=== PATIENT | male | born 1960 | race Caucasian/White ===

== ENCOUNTER 2024-06-08 13:35 | Outpatient (OUT) | payer BC, SELFPAY ==
--- NOTE | 2024-06-08 14:00 | XR_ITS ---
The [address] [address] Patient Name: GALILEA VANEGAS MRN: [id number] date: 1960 Sex: M Assigned Patient Location: LAB Current Patient Location: Accession/Order Number: [id number] Exam Date: 06/08/2024 13:55 Report Date: 06/10/2024 05:42 At the request of: TAWANA MONTANEZ Procedure: XR abdomen 1V EXAMINATION: XR abdomen 1V HISTORY: KIDNEY STONES COMPARISON: XR KUB 11/19/2022 FINDINGS: KIDNEY/URETER - RIGHT: No visible renal or ureteral calcifications. KIDNEY/URETER - LEFT: No visible renal or ureteral calcifications. PELVIS: No visible ureteral stones. Stable pelvic calcifications favoring phleboliths. BOWEL: No abnormal dilation or deviation. BONES: No acute abnormality. OTHER: Negative. No abnormal gaseous collections. XR/XR abdomen 1V IMPRESSION: 1. No appreciable urinary tract calculi. Electronically authenticated by: KARINA SNIDER Date: 06/10/2024 05:42
[2024-06-08 15:23] LABS: Prostate Specific Antigen Dx 3.31 ng/mL (<=4.00)
== END 2024-06-08 13:36 | disposition home or self-care (01) ==
LOC: LAB 13:35
PROVIDERS: PCP Family Medicine; Visit Provider Urology
DX: N20.0 Calculus of kidney (principal); R97.20 Elevated prostate specific antigen [PSA]
CPT/HCPCS: 36415; 74018; 84153

== ENCOUNTER 2025-06-15 10:40 | Outpatient (OUT) | payer BC, SELFPAY ==
--- OUTSIDE RECORDS SUMMARY | 2025-06-15 10:50 | XMS_ITS | CCD ---
Author Organization [facility] CliniSyky Care Team Providers Care Skin Installer Name Role Phone TERRELL MARTIN Primary Care Physician Unavailable Primary Care Provider UnavailVEGA Flores Referring Unavailable PROVIDER, UNKNOWN Attending Unavailable PROVIDER, UNKNOWN Admitting Unavailable VEGA, VEGA Admitting Unavailable VEGA, VEGA Attending Unavailable VEGA, VEGA Consulting Unavailable INDY, DR WANG Primary Care Unavailable VEGA, VEGA Attending Unavailable VEGA, VEGA Consulting Unavailable INDY, DR WANG Primary Care Unavailable VEGA, VEGA Admitting Unavailable VEGA, VEGA Attending Unavailable VEGA, VEGA Consulting Unavailable INDY, DR WANG Primary Care Unavailable VEGA, VEGA Admitting Unavailable VEGA, VEGA Admitting Unavailable VEGA, VEGA Attending Unavailable MARTIN, DR WANG Primary Care Unavailable VEGA, VEGA Consulting Unavailable INDY, DR WANG Primary Care Unavailable VEGA, VEGA Admitting Unavailable VEGA, VEGA Attending Unavailable VEGA, VEGA Consulting Unavailable ZIEBER, DR KARINA Davidson Consulting Unavailable NATALIYA COVINGTON Admitting Unavailable NATALIYA COVINGTON Attending Unavailable INDY, DR WANG Primary Care Unavailable NATALIYA COVINGTON Consulting Unavailable VEGA, VEGA Admitting Unavailable VEGA, VEGA Attending Unavailable VEGA, VEGA Consulting Unavailable INDY, DR WANG Primary Care Unavailable BRIANNA WADE Admitting Unavailable BRIANNA WADE Attending Unavailable INDY, DR WANG Primary Care Unavailable BRIANNA WADE Consulting Unavailable Vega VEGA Attending Unavailable VEGA, Vega Davidson Attending Unavailable Medications Current Medications Medication Drug Class(es) Dates Sig (Normalized) Sig (Original) acetaminophen 325 mg / HYDROcodone bitartrate 7.5 mg oral tablet (2 sources) Opioid Agonist Start: 04-10-2023 take 1 tablet by mouth once, then take 1 tablet by mouth every hour Stow 325 mg-7.5 mg oral tablet 1 tab(s), Oral, Once, 1 tab(s), Refill(s) 0, Take 1 hour prior to procedure, [facility]/pharmacy #[id number], 180, cm, 12/10/22 10:01:00 EDT, Height/Length Dosing, 82, kg, 12/10/22 10:01:00 EDT, Weight Dosing Start Date: 04/10/23 Status: Ordered Start: 10-16-2022 take 1 tablet by deonte th once, then take 1 tablet by mouth every hour Stow 325 mg-7.5 mg oral tablet 1 tab(s), Oral, Once, 1 tab(s), Refill(s) 0, Take 1 hour prior to procedure, [facility]/pharmacy #[id number], 172, cm, 12/04/21 10:04:00 EDT, Height/Length Dosing, 80, kg, 12/04/21 10:04:00 EDT, Weight Dosing Start Date: 10/16/22 Status: Ordered 24 hr alfuzosin hydrochloride 10 mg extended release oral tablet (1 source) alpha-Adrenergic Herber Start: 06-15-2024 take 1 tablet by mouth once daily alfuzosin 10 mg ER Tab 10 mg = 1 tab(s), Oral, Daily, # 30 tab(s), Refills(s) 11, Pharmacy: [facility]/pharmacy #[id number], 180, cm, 06/15/24 13:47:00 EDT, Height/Length Dosing, 82, kg, 06/15/24 13:47:00 EDT, Weight Dosing Start Date: 06/15/24 Status: Ordered Chondroitin Sulfates / Glucosamine (7 sources) Start: 10-21-2020 Chondroitin-Glucosami ne Oral, Daily, Refill(s) 0 Start Date: 10/21/20 Status: Ordered glucosamine sulfate 500 mg oral tablet (1 source) Start: 11-11-2024 take 1 tablet by mouth once daily Glucosamine Sulfate (Glucosamine) 500 mg tablet Active 500 MG PO Daily November 11, 2024 12:00am administer with a meal hydroCHLOROthiazide 12.5 mg oral capsule (10 sources) Thiazide Diuretic Start: 02-05-2023 End: 01-24-2025 take 1 capsule by mouth once daily Hydrochlorothiazide 12.5 mg capsule Active 1 CAP PO Daily November 22, 2023 12:00am FreeTextSig: TAKE 1 CAPSULE BY MOUTH EVERY DAY Oral; Note: Source Status: Taking; Refills: 3; Qty: 90 Each; Provider: CORY SHARMA Start: 02-04-2022 take 1 capsule by [facility] once daily hydrochlorothiazide 12.5 mg Cap 12.5 mg = 1 cap(s), Oral, Daily, # 90 cap(s), Refills(s) 3, Pharmacy: [facility]/pharmacy #[id number], 172, cm, 12/04/21 10:04:00 EDT, Height/Length Dosing, 80, kg, 12/04/21 10:04:00 EDT, Weight Dosing Start Date: 02/04/22 Status: Ordered Multi Vitamin+ (4 sources) Start: 12-10-2022 Multi Vitamin+ Refill(s) 0 Start Date: 12/10/22 Status: Ordered Multivitamin With Iron (Daily Vitamin With Iron) tablet (1 source) Start: 11-11-2024 take 1 tablet by mouth once daily Multivitamin With Iron (Daily Vitamin With Iron) tablet Active 1 TAB PO Daily November 11, 2024 12:00am pantoprazole 40 mg delayed release oral tablet (14 sources) Proton Pump Inhibitor Start: 11-13-2023 End: 11-11-2024 take 1 tablet by mouth once daily Pantoprazole 40 mg tablet,delayed release (DR/EC) Active 40 MG PO Daily 90 90 November 11, 2024 1:29pm Start: 10-21-2020 pantoprazole D aily, Refills(s) 0 Start Date: 10/21/20 Status: Ordered Completed/Discontinued Medications Medication Drug Class(es) Dates Sig (Normalized) Sig (Original) fluconazole 150 mg oral tablet (1 source) Azole Antifungal Start: 12-12-2023 End: 11-11-2024 Fluconazole 150 mg tablet Discontinued 150 MG PO Daily 2 2 December 12, 2023 12:00am November 11, 2024 1:27pm Take 1 tablet by mouth today with food, take the second tablet in 3 days. Gadoterate Meglumine (DOTAREM) 10 MMOL/20ML solution (1 source) Start: 09-27-2022 End: 09-27-2022 Gadoterate Meglumine (DOTAREM) 10 MMOL/20ML solution terbinafine hydrochloride 10 mg/ml topical cream (1 source) Allylamine Antifungal Start: 12-12-2023 End: 11-11-2024 Terbinafine Hcl (Antifungal (Terbinafine)) 1 % cream Discontinued 1 APPLIC TOPICAL Twice daily December 12, 2023 12:00am November 11, 2024 1:27pm Apply to rash until the rash improves then apply for 2 more days. Problems Active Problems Problem Classification Problem Date Documented Date Episodic/Chronic Calculus of urinary tract (20 sources) Kidney stone; Translations: [Calculus of kidney] Onset: 06-11-2022 Episodic E Codes: Natural/environment (1 source) Exposure to other specified factors, initial encounter; Translations: [EXPOSURE OTHER SPEC FACTORS INITIAL] Onset: 09-11-2022 Episodic Esophageal disorders (6 sources) Gastroesophageal reflux disease; Translations: [Gastro-esophageal reflux disease without esophagitis] 11-22-2023 Chronic Hyperplasia of prostate (16 sources) Benign prostatic hypertrophy with outflow obstruction; Translations: [Benign prostatic hyperplasia with lower urinary tract symptoms] Onset: 06-11-2022 Chronic Mycoses (1 source) Tinea cruris; Translations: [Dermatophytosis of groin and perianal area] 12-12-2023 Episodic Nutritional deficiencies (1 source) Vitamin D deficiency, unspecified; Translations: [VITAMIN D DEFICIENCY UNSPECIFIED] Onset: 05-31-2022 Chronic Other aftercare (1 source) Other halfway (current) drug therapy; Translations: [OTH CORRECTION CURRENT DRUG THERAPY] Onset: 09-11-2022 Episodic Other eye disorders (3 sources) Other specified disorders of eye and adnexa; Translations: [OTHER SPEC DISORDERS EYE AND ADNEXA] Onset: 09-08-2022 Episodic Other male genital disorders (9 sources) Spermatocele; Translations: [Spermatocele of epididymis, unspecified] Onset: 06-11-2022 Episodic Other male genital disorders (1 source) Spermatocele of epididymis, unspecified; Translations: [SPERMATOCELE EPIDIDYMIS UNSPECIFIED] Onset: 11-30-2022 Episodic Other screening for suspected conditions (not mental disorders or infectious disease) (14 sources) Raised prostate specific antigen; Translations: [Elevated prostate specific antigen [PSA]] Onset: 05-31-2022 Episodic Superficial injury; contusion (1 source) Injury of conjunctiva and corneal abrasion without foreign body, right eye, initial encounter; Translations: [INJ CONJ AND CA W/O FB RT EYE INITIAL] Onset: 09-11-2022 Episodic Past or Other Problems Problem Classification Problem Date Documented Da te Episodic/Chronic Malaise and fatigue (1 source) Other fatigue; Translations: [OTHER FATIGUE] Onset: 05-31-2022 Episodic Results Test Name Value Interpretation Reference Range Facility Urology Office/Clinic Noteon 06-15-2024 Urology Office/Clinic Note Urology Office/Clinic Note Chief Complaint 1 yr w/ PSA & KUB HPI Staff 64 yr old male here for 1 yr f/u w/ PSA and KUB Dx: elevated PSA, hx of kidney stones, BPH with obstruction. S/p TRUS/bx done 10/30/22 pt was unable to give urine sample PSA: 11/22/21 - 1.87 05/29/22 - 3.11 11/27/22 - 3.78 06/08/24 - 3.31 MRI of prostate 09/27/22 - PI-RADS 3. TRUS/Bx 10/30/22 - DELTA x 1 core. TRUS/bx 05/14/23 - All neg. Prostate volume 38 cc. Dysuria: no Incomplete bladder emptying: no Hematuria: no Frequency: q2-4 hrs, depending on how much he drinks Urgency: no Nocturia:2-3x Stream: weak Leaking: at times Post void dripping: at times Wearing pads/ Depends: Urge incontinence:no Stress incontinence:no Incontinence without Sensory Awareness:no Abdominal pain:no Flank pain:no Sexual complaints: History of Present Illness Tests reviewed: reviewed PSA, KUB I have reviewed the previous health record information and history for this patient from Dr. Vega. I have reviewed and verified the staff HPI to be accurate for this encounter. Review of Systems PHQ Score Initial Depression Screen Score: 0 SCORE ROS - Provider Constitutional: denies weight loss, denies hot flashes. Eyes: denies eye problems. Gastrointestinal: denies nausea, denies vomiting. Cardiovascular: denies chest pain or angina. Integumentary: no dryness Musculoskeletal: denies musculoskeletal symptoms. ENMT: denies otolaryngeal symptoms. Respiratory: no shortness of breath. Heme/Lymph: denies easy bleeding tendency, denies easy bruising tendency. Psychiatric: no confusion, no anxiety. Genitourinary: See HPI. Physical Exam Vitals & Measurements HR: 68(Peripheral) BP: 136/82 HT: 71 in HT: 180 cm WT: 82 kg WT: 180.4 lb BMI: 25.31 General Appearance: alert, no distress, well nourished, well developed male. Assessment/Plan 1. Elevated PSA (R97.20: Elevated prostate specific antigen [PSA]) PSA: 11/22/21 - 1.87 05/29/22 - 3.11 11/27/22 - 3.78 06/08/24 - 3.31 MRI of prostate 09/27/22 - PI-RADS 3. TRUS/Bx 10/30/22 - DELTA x 1 core. TRUS/bx 05/14/23 - All neg. Prostate volume 38 cc. PSA decreased from prior. Discussed possible subclinical prostatitis contributing to previous elevation. Will continue to monitor. -PSA in 1 year 2. Kidney stone (N20.0: Calculus of kidney) 24hr urine 11/30/22 - U24 Na 252 slightly H. Volume slightly low. KUB 11/27/22 [facility] - No urinary tract calculi. KUB 06/08/24 [facility] - No stones noted. Taking HCTZ 12.5 mg qd. Reviewed imaging results. No indication for changes in management. -Cont HCTZ 12.5 mg qd and increased water intake 3. BPH with urinary obstruction (N40.1: Benign prostatic hyperplasia with lower urinary tract symptoms) Not taking any BPH meds. No sample provided for UA today. Reports slower stream. Feels he empties. Denies straining. Attributes getting up at night due to compensating for limited water intake during the day. Pt inquired about prostate supplements. Advised pt these are not FDA-approved and there are limited studies. Discussed prostate meds and possible SEs including orthostatic hypotension and retrograde ejaculation. Pt is willing to try this. -Start Alfuzosin ER 10mg qd. Rx sent to [facility]. Follow-up With When Contact Information LISSETH MARTINEZ, Vega Davidson, [facility] [address], [place] [address]- [phone] Additional Instructions: 1 yr w/ PSA Patient Education Benign Prostatic Hyperplasia I, Sally Huff, personally scribed for Dr. Vega on 06/15/2024 15:15:24. . Documentation recorded by the scribe, Sally Huff, accurately reflects the services(s) I performed and decisions made by me. Authenticated by Dr. Vega on 06/15/2024 15:17:44. Problem List/Past Medical History Ongoing BPH with urinary obstruction Elevated PSA History of kidney stones Kidney stone Spermatocele Historical No qualifying data Procedure/Surgical History Transrectal needle biopsy of prostate (05/14/2023), Transrectal biopsy of prostate using ultrasound (US) guidance (10/30/2022), ESWL of kidney (10/27/2020), Colonoscopy. Medications Chondroitin-Glucosam ine, Oral, Daily hydrochlorothiazide 12.5 mg Cap, 12.5 mg= 1 cap(s), Oral, Daily, 3 refills Multi Vitamin+ pantoprazole, Daily Allergies No Known Allergies Social History Tobacco Never (less than 100 in lifetime) Tobacco Use:. Never Smokeless Tobacco Use:., 06/15/2024 Family History Brain tumor: Father. Heart disease: Brother. Immunizations Vaccine Date Status influenza virus vaccine, inactivated 06/24/2022 Recorded SARS-CoV-2 (COVID-19) [id number] 06/24/2022 Recorded SARS-CoV-2 (COVID-19) mRNA BNT-162b2 vax 08/13/2021 Recorded SARS-CoV-2 (COVID-19) Ad26 vaccine 08/2021 Recorded influenza virus vaccine, inactivated 07/2021 Recorded influenza virus vaccine, inactivated 06/15/2021 Recorded (more content not included)... Normal [facility] Comment on above: Result Comment: Elec tronically Signed By: Vega VEGA MD\.br\Date and Time Signed: 06/15/24 15:17 EDT\.br\Electronically Co-Signed By: Sally Huff\.br\Date and Time Co-Signed: 06/15/24 15:15 EDT\.br\Electronically Co-Signed By: Sally Huff\.br\Date and Time Co-Signed: 06/15/24 15:16 EDT CITRATE URINE 24HRon 023 Citric Acid, U, 24hr 690 mg/24 hr Normal 320-1240 [facility] Comment on above: Result Comment: This test was developed and its performance characteristics determined by [facility]. It has not been cleared or approved by the Food and Drug Administration. Performed By: #### E LEC #### [facility] [address] [place] [address] Dr. Jumana White Citric Acid, Urine 321 mg/L Normal Undefined [facility] Comment on above: Performed By: #### E LEC #### [facility] [address] [place] [address] Dr. Jumana White OXALATE 24HR URINEon 023 Oxalates, Urine 12 mg/L Normal Undefined [facility] Comment on above: Performed By: #### O X24HR #### [facility] [address] [place] [address] Dr. Jumana White Oxalates, Urine 24hr 26 mg/24 hr Normal 7-44 [facility] Comment on above: Performed By: #### O X24HR #### [facility] [address] [place] [address] Dr. Jumana White MAGNESIUM 24HR URINEon 12-02 Magnesium 24hr Urine 144.1 mg/24 hr Normal 12.0-293.0 [facility] Comment on above: Performed By: #### M AG24 #### [facility] [address] [place] [address] Dr. Jumana White Magnesium UR 6.7 mg/dL Normal Not Estab. [facility] Comment on above: Performed By: #### M AG24 #### [facility] [address] [place] [address] Dr. Jumana White PHOSPHORUS 24HR URINEon Phosphorus, Urine 83.2 mg/dL Normal Not Estab. The [facility] Comment on above: Performed By: #### O X24HR #### [facility] [address] [place] [address] Dr. Jumana White Phosphorus, Urine 24hr 1789 mg/24 hr Critically high 390-1425 [facility] Comment on above: Performed By: #### O X24HR #### [facility] [address] [place] [address] Dr. Jumana White URIC ACID 24 HR URINEon 04-0 Uric Acid, Urine 41.2 mg/dL Normal Not Estab. The [facility] Comment on above: Performed By: #### U LANIE 24 #### [facility] [address] [place] [address] Dr. Jumana White Uric Acid, Urine 24hr 885.8 mg/24 hr Normal 182.4-936.8 [facility] Comment on above: Performed By: #### U LANIE 24 #### [facility] [address] [place] [address] Dr. Jumana White CALCIUM 24 HR URINEon 2022 CALC, 24 HR UR 223.6 mg/24 hr Normal 100.0-300.0 [facility] Comment on above: Performed By: #### O X24HR #### [facility] [address] [place] [address] Dr. Jumana White UR CALCIUM 10.4 mg/dL Normal 5.1-21.0 [facility] Comment on above: Performed By: #### O X24HR #### [facility] [address] [place] [address] Dr. Jumana White CREA 24 HR URINEon 3 CREA, 24 HR UR 1693.34 mg/24 hr Normal 1,000.00- 2,000 .00 [facility] Comment on above: Performed By: #### N A24U, [id number] #### [facility] [address] [place] [address] Dr. Jumana White URINE CREAT 78.76 mg/dL Normal 20.00-300.00 [facility] Comment on above: Performed By: #### N A24U, [id number] #### [facility] [address] [place] [address] Dr. Jumana White SODIUM 24 HR URINEon 023 NA, 24 HR UR 252 mmol/24 hr Critically high 40-220 [facility] Comment on above: Performed By: #### C REA24U, [id number] #### [facility] [address] [address] [address] Jumana White Sodium (U) [Moles/Vol] 117 mmol/L Critically high 30-90 [facility] Comment on above: Performed By: #### C REA24U, [id number] #### [facility] [address] [place] [address] Dr. Jumana White UR TOT VOL 2150 ml/24 HR Normal [facility] Comment on above: Performed By: #### C REA24U, [id number] #### [facility] [address] [place] [address] Dr. Jumana White Performed By: #### N A24U, [id number] #### [facility] [address] [place] [address] Dr. Jumana White Performed By: #### O X24HR #### [facility] [address] [place] [address] Dr. Jumana White XR KUB 1 VIEWon 11-27-2022 XR KUB 1 VIEW EXAMINATION: XR KUB 1 VIEW HISTORY: Lower urinary tract symptoms due to benign prostatic hypertrophy COMPARISON: XR KUB 06/01/2021 FINDINGS: KIDNEY/URETER - RIGHT: No visible renal or ureteral calcifications. KIDNEY/URETER - LEFT: No visible renal or ureteral calcifications. PELVIS: No appreciable ureteral stones. Numerous pelvic calcifications favoring phleboliths. BOWEL: No abnormal dilation or deviation. BONES: No acute abnormality. OTHER: Negative. No abnormal gaseous collections. IMPRESSION: 1. No appreciable urinary tract calculi. Electronically authenticated by: KARINA SNIDER Date: 2022-11-27 14:29 Normal [facility] MR PROSTATE W/W/Oon 10-08-19 MR PROSTATE W/W/O EXAMINATION: MR PROSTATE W/W/O 09/27/2022 01:23 PM CLINICAL HISTORY: PSA ASSOCIATED DIAGNOSIS: Elevated PSA ORDERING PROVIDER: VEGA VEGA TECHNOLOGISTS NOTE: COMPARISON: None TECHNIQUE: Patient questionnaire was completed and was reviewed by MRI personnel prior to the patient entering the scanner. Multiplanar, multisequence MR imaging of the prostate was performed with and without intravenous contrast. INTRA-PROCEDURE MEDS: Gadoterate Meglumine (DOTAREM) 10 MMOL/20ML solution 15 mL Route: Intravenous Push FINDINGS: The prostate measures 4.4 x 3.4 x 4.0 cm. The calculated prostate volume is 30.56 cc. No PSA was available in unavailable electronic medical records at the time of this interpretation. Hemorrhage: Absent. Peripheral zone: Lesion #1: Location: Right base medial on series 10, image 13, (Series 9, Image 13) (Series 8, Image 13) Size: 1 cm DWI: Focal hypointense on ADC or hyperintense on DWI. Category 3. DCE: Not applicable. Prostate margin: No involvement. Lesion overall PI-RADS category: 3 Lesion #2: Location: Left base medial on series 9, image 13. Size: 0.6 cm DWI: Focal hypointense on ADC or hyperintense on DWI. Category 3. DCE: Not applicable. Prostate margin: Indeterminate. Lesion overall PI-RADS category: 3 Transition zone: No focal lesion. Neurovascular bundles: Unremarkable. Seminal vesicles: Unremarkable. Lymph nodes: No lymphadenopathy. Bones: No suspicious osseous lesion. IMPRESSION: Two PI-RADS 3 lesions in the medial prostate base bilaterally, as described Overall PI-RADS category: 3 PI-RADS V2.1 Assessment Categories PI-RADS 1 - Very low (clinically significant cancer is highly unlikely to be present) PI-RADS 2 - Low (clinically significant cancer is unlikely to be present) PI-RADS 3 - Intermediate (the presence of clinically significant cancer is equivocal) PI-RADS 4 - High (clinically significant cancer is likely to be present) PI-RADS 5 - Very high (clinically significant cancer is highly likely to be present) MACRO: None Normal [facility] CBC AUTO DIFFon 05-29-2022 BASO # 0.1 103/ul Normal 0.0-0.1 [facility] Comment on above: Performed By: #### O X24HR #### [facility] [address], [place] [address] Dr. Jumana White Basophils/100 WBC (Bld) 0.9 % Normal 0.2-2.0 [facility] Comment on above: Performed By: #### O X24HR #### [facility] [address] [place], [place] [address] Dr. Jumana White EO # 0.1 103/ul Normal 0.0-0.7 [facility] Comment on above: Performed By: #### O X24HR #### [facility] [address] [place] [address] Dr. Jumana Whiet Eosinophils/100 WBC (Bld) 2.1 % Normal 0.9-7.0 [facility] Comment on above: Performed By: #### O X24HR #### [facility] [address] [place] [address] Dr. Jumana White Erythrocyte distribution width (RBC) [Ratio] 14.6 % Normal 11.0-15.0 [facility] Comment on above: Performed By: #### O X24HR #### [facility] [address] [place] [address] Dr. Jumana White Hematocrit (Bld) [Volume fraction] 42.4 % Normal 42.0-54.0 [facility] Comment on above: Performed By: #### O X24HR #### [facility] [address] [place] [address] Dr. Jumana White Hemoglobin (Bld) [Mass/Vol] 14.0 g/dL Normal 14.0-18.0 [facility] Comment on above: Performed By: #### O X24HR #### [facility] [address] [place] [address] Dr. Jumana White IG # 0.02 10e3/ul Normal 0.00-0.03 [facility] Comment on above: Performed By: #### O X24HR #### [facility] [address] [place] [address] Dr. Jumana White IG % 0.4 % Normal 0.0-0.5 [facility] Comment on above: Performed By: #### O X24HR #### [facility] [address] [place] [address] Dr. Jumana White LYMPH # 1.5 103/ul Normal 1.2-3.8 [facility] Comment on above: Performed By: #### O X24HR #### [facility] [address] [place] [address] Dr. Jumana White Lymphocytes/100 WBC (Bld) 26.6 % Normal 20.5-60.0 [facility] Comment on above: Performed By: #### O X24HR #### [facility] [address] [place] [address] Dr. Jumaan White MANUAL DIFF REQ NO Normal [facility] Comment on above: Performed By: #### O X24HR #### [facility] [address] [place] [address] Dr. Jumana White MCH (RBC) [Entitic mass] 27.3 pg Normal 25.9-34.0 [facility] Comment on above: Performed By: #### O X24HR #### [facility] [address] [place] [address] Dr. Jumana White MCHC (RBC) [Mass/Vol] 33.0 g/dL Normal 29.9-35.2 [facility] Comment on above: Performed By: #### O X24HR #### [facility] [address] [place] [address] Dr. Jumana White MCV (RBC) [Entitic vol] 82.7 fL Normal 80.0-94.0 [facility] Comment on above: Performed By: #### O X24HR #### [facility] [address] [place] [address] Dr. Jumana White MONO # 0.6 103/ul Normal 0.3-0.8 [facility] Comment on above: Performed By: #### O X24HR #### [facility] [address] [place] [address] Dr. Jumana White Monocytes/100 WBC (Bld) 11.0 % Normal 1.7-12.0 [facility] Comment on above: Performed By: #### O X24HR #### [facility] [address] [place] [address] Dr. Jumana White NEUT # 3.4 103/ul Normal 1.4-6.5 [facility] Comment on above: Performed By: #### O X24HR #### [facility] [facility] [address] [place] [address] Dr. Jumana White Neutrophils/100 WBC (Bld) 59.0 % Normal 43.0-75.0 [facility] Comment on above: Performed By: #### O [id number] #### [facility] [address] [place] [address] Dr. Jumana White Platelet mean volume (Bld) [Entitic vol] 8.9 fL Critically low 9.5-13.5 [facility] Comment on above: Performed By: #### O [id number] #### [facility] [address] [place] [address] Dr. Jumana White PLT 261 103/ul Normal 150-450 [facility] Comment on above: Performed By: #### O X24HR #### [facility] [address] [place] [address] Dr. Jumana White RBC 5.13 106/ul Normal 4.70-6.10 [facility] Comment on above: Performed By: #### O [id number] #### [facility] [address] [place] [address] Dr. Jumana White WBC 5.7 103/ul Normal 4.0-11.0 [facility] Comment on above: Performed By: #### O [id number] #### [facility] [address] [place] [address] Dr. Jumana White FREE T4on 05-29-2022 Free T4 [Mass/Vol] 0.84 ng/dL Normal 0.76-1.46 [facility] Comment on above: Performed By: #### O X24HR #### [facility] [address] [place] [address] Dr. Jumana White GLYCOHEMOGLOBIN A1Con 2021 ADA RECOMMENDATION SEE BELOW Normal [facility] Comment on above: Result Comment: ADA RECOMMENDED LIMIT 4.0 - 6.0 ADA THERAPEUTIC TARGET < 7.0 ACTION SUGGESTED > 7.0 Performed By: #### E LEC #### [facility] [address] [place] [address] Dr. Jumana White Glucose [Mass/Vol] 117 mg/dL Normal [facility] Comment on above: Performed By: #### E LEC #### [facility] [address] [address] [address] Jumana White HbA1c (Bld) [Mass fraction] 5.7 % Normal 4.5-6.2 [facility] Comment on above: Performed By: #### E LEC #### [facility] [address] [address] [address] Jumana White LIPID PROFILEon 05-29-2022 CHOL-HDL RATIO NORM SEE BELOW Normal [facility] Comment on above: Result Comment: 3.3 - 4.4 LOW RISK 4.4 - 7.1 AVERAGE RISK 7.1 - 11.0 MODERATE RISK >11.0 HIGH RISK Performed By: #### E LEC #### [facility] [address] [place] [address] Dr. Jumana White Cholesterol [Mass/Vol] 225 mg/dL Critically high <=200 [facility] Comment on above: Performed By: #### E LEC #### [facility] [address] [address] [address] Jumana White Cholesterol in HDL [Mass/Vol] 51 mg/dL Normal 40-60 [facility] Comment on above: Performed By: #### E LEC #### [facility] [address] [place] [address] Dr. Jumana White Cholesterol in LDL [Mass/Vol] 162.2 mg/dL Normal [facility] Comment on above: Performed By: #### E LEC #### [facility] [address] [address] [address] Jumana White Cholesterol.total/Ch olesterol in HDL [Mass ratio] 4.4 {ratio} Normal [facility] Comment on above: Performed By: #### E LEC #### [facility] [address] [address] [address] Jumana White HDL NORMAL > or = 60 mg/dl - LOW CARDIOVASCULAR RISK <40 mg/dl - HIGH CARDIOVASCULAR RISK Normal [facility] Comment on above: Performed By: #### E LEC #### [facility] [address] [place] [address] Dr. Jumana White LDL CALC NORMAL SEE BELOW Normal [facility] Comment on above: Result Comment: <100 mg/dl OPTIMAL 100 - 129 mg/dl NEAR OR ABOVE OPTIMAL 130 - 159 mg/dl BORDERLINE HIGH 160 - 189 mg/dl HIGH >190 mg/dl VERY HIGH Performed By: #### E LEC #### [facility] [address] [place] [address] Dr. Jumana White Triglyceride [Mass/Vol] 59 mg/dL Normal <=150 [facility] Comment on above: Performed By: #### E LEC #### [facility] [address] [place] [address] Dr. Jumana White VLDL CALC 11.8 mg/dL Normal [facility] Comment on above: Performed By: #### E LEC #### [facility] [address] [place] [address] Dr. Jumana White PROF 14(COMP METB)on 022 Albumin [Mass/Vol] 3.6 g/dL Normal 3.4-5.0 [facility] Comment on above: Performed By: #### E LEC #### [facility] [address] [place] [address] Dr. Jumana White Albumin/Globulin [Mass ratio] 1.1 {ratio} Normal [facility] Comment on above: Performed By: #### E LEC #### [facility] [address] [place] [address] Dr. Jumana White ALP [Catalytic activity/Vol] 44 U/L Critically low 46-116 [facility] Comment on above: Performed By: #### E LEC #### [facility] [address] [place] [address] Dr. Jumana White ALT [Catalytic activity/Vol] 30 U/L Normal 16-63 [facility] Comment on above: Performed By: #### E LEC #### [facility] [address] [place] [address] Dr. Jumana White Anion gap [Moles/Vol] 10.5 mmol/L Normal [facility] Comment on above: Performed By: #### E LEC #### [facility] [address] [place] [address] Dr. Jumana White AST [Catalytic activity/Vol] 18 U/L Normal 15-37 [facility] Comment on above: Performed By: #### E LEC #### [facility] [address] [place] [address] Dr. Jumana White Bilirubin [Mass/Vol] 0.8 mg/dL Normal 0.2-1.0 [facility] Comment on above: Performed By: #### E LEC #### [facility] [address] [address] [address] Jumana White Calcium [Mass/Vol] 8.7 mg/dL Normal 8.5-10.1 [facility] Comment on above: Performed By: #### E LEC #### [facility] [address] [place] [address] Dr. Jumana White Chloride [Moles/Vol] 107 mmol/L Normal 98-107 [facility] Comment on above: Performed By: #### E LEC #### [facility] [address] [place] [address] Dr. Jumana White CO2 [Moles/Vol] 29.6 mmol/L Normal 21.0-32.0 [facility] Comment on above: Performed By: #### E LEC #### [facility] [address] [place] [address] Dr. Jumana White Creatinine [Mass/Vol] 0.82 mg/dL Normal 0.70-1.30 [facility] Comment on above: Performed By: #### E LEC #### [facility] [address] [place] [address] Dr. Jumana White EGFR-AF IRAQI >60 Normal >=60 [facility] Comment on above: Performed By: #### E LEC #### [facility] [address] [place] [address] Dr. Jumana White EGFR-NON AF IRAQI >60 Normal >=60 [facility] Comment on above: Performed By: #### E LEC #### [facility] [address] [place] [address] Dr. Jumana White Globulin (S) [Mass/Vol] 3.3 g/dL Normal [facility] Comment on above: Performed By: #### E LEC #### [facility] [address] [address] [address] Jumana White Glucose [Mass/Vol] 109 mg/dL Critically high 74-106 [facility] Comment on above: Performed By: #### E LEC #### [facility] [address] [address] [address] Jumana White Potassium [Moles/Vol] 4.1 mmol/L Normal 3.5-5.1 [facility] Comment on above: Performed By: #### E LEC #### [facility] [address] [address] [address] Jumana White Protein [Mass/Vol] 6.9 g/dL Normal 6.4-8.2 [facility] Comment on above: Performed By: #### E LEC #### [facility] [address] [address] [address] Jumana White Sodium [Moles/Vol] 143 mmol/L Normal 136-145 [facility] Comment on above: Performed By: #### E LEC #### [facility] [address] [address] [address] Jumana White Urea nitrogen [Mass/Vol] 20.0 mg/dL Critically high 7.0-18.0 [facility] Comment on above: Performed By: #### E LEC #### [facility] [address] [address] [address] Jumana White Urea nitrogen/Creatinine [Mass ratio] 24.4 mg/mg Normal [facility] Comment on above: Performed By: #### E LEC #### [facility] [address] [address] [address] Jumana White TSHon 05-29-2022 TSH 0.559 uIU/mL Normal 0.358-3.740 [facility] Comment on above: Performed By: #### E LEC #### [facility] [address] [address] [address] Jumana White VITAMIN D 25 OHon 05-29-2022 VIT D 25-OH 30.4 ng/mL Normal [facility] Comment on above: Performed By: #### O [id number] #### [facility] [address] [address] [address] Jumana White VIT D RANGES SEE BELOW Normal [facility] Comment on above: Result Comment: <20 ng/mL Vit D deficient 20 - <30 ng/mL Vit D insufficient 30 - 100 ng/mL Vit D sufficient >100 ng/mL Potential Toxicity Performed By: #### O X24HR #### [facility] [address] [address] [address] Jumana White ELECTROLYTESon 04-23-2022 Anion gap [Moles/Vol] 12.8 mmol/L Normal [facility] Comment on above: Performed By: #### E LEC #### [facility] [address] [place] [address] Dr. Jumana White Chloride [Moles/Vol] 104 mmol/L Normal 98-107 [facility] Comment on above: Performed By: #### E LEC #### [facility] [address] [place] [address] Dr. Jumana White CO2 [Moles/Vol] 26.9 mmol/L Normal 21.0-32.0 [facility] Comment on above: Performed By: #### E LEC #### [facility] [address] [place] [address] Dr. Jumana White Potassium [Moles/Vol] 3.7 mmol/L Normal 3.5-5.1 [facility] Comment on above: Performed By: #### E LEC #### [facility] [address] [place] [address] Dr. Jumana White Sodium [Moles/Vol] 140 mmol/L Normal 136-145 [facility] Comment on above: Performed By: #### E LEC #### [facility] [address] [place] [address] Dr. Jumana White OXALATE 24HR URINEon 022 Oxalates, Urine 25 mg/L Normal Undefined [facility] Comment on above: Performed By: #### O X24HR #### [facility] [address] [place] [address] Dr. Jumana White Oxalates, Urine 24hr 34 mg/24 hr Normal 7-44 [facility] Comment on above: Performed By: #### O X24HR #### [facility] [address] [address] [address] Jumana White CITRATE URINE 24HRon 01-12- 022 Citric Acid, U, 24hr 891 mg/24 hr Normal 320-1240 [facility] Comment on above: Result Comment: This test was developed and its performance characteristics determined by [employer]. It has not been cleared or approved by the Food and Drug Administration. Performed By: #### O X24HR #### [facility] [address] [address] [address] Jumana White Citric Acid, Urine 648 mg/L Normal Undefined [facility] Comment on above: Performed By: #### O X24HR #### [facility] [address] [place] [address] Dr. Jumana White MAGNESIUM 24HR URINEon 01-11 Magnesium 24hr Urine 180.1 mg/24 hr Normal 12.0-293.0 [facility] Comment on above: Performed By: #### N A24U, [id number] #### [facility] [address] [address] [address] Jumana White Magnesium UR 13.1 mg/dL Normal Not Estab. [facility] Comment on above: Performed By: #### N A24U, [id number] #### [facility] [address] [address] [address] Jumana White PHOSPHORUS 24HR URINEon 12-31 Phosphorus, Urine 115.2 mg/dL Normal Not Estab. [facility] Comment on above: Performed By: #### O X24HR #### [facility] [address] [address] [address] Jumana White Phosphorus, Urine 24hr 1584 mg/24 hr Critically high 390-1425 [facility] Comment on above: Performed By: #### O X24HR #### [facility] [address] [place] [address] Dr. Jumana White URIC ACID 24 HR URINEon 12-31 Uric Acid, Urine 70.5 mg/dL Normal Not Estab. [facility] Comment on above: Performed By: #### U LANIE 24 #### [facility] [address] [place] [address] Dr. Jumana White Uric Acid, Urine 24hr 965.9 mg/24 hr Normal 197.2-1078.7 [facility] Comment on above: Performed By: #### U LANIE 24 #### [facility] [address] [place] [address] Dr. Jumana White CALCIUM 24 HR URINEon 2021 CALC, 24 HR UR 320.4 mg/24 hr Critically high 100.0-300.0 [facility] Comment on above: Performed By: #### E LEC #### [facility] [address] [place] [address] Dr. Jumana White UR CALCIUM 23.3 mg/dL Critically high 5.1-21.0 [facility] Comment on above: Performed By: #### E LEC #### [facility] [address] [place] [address] Dr. Jumana White CREA 24 HR URINEon CREA, 24 HR UR 2348.50 mg/24 hr Critically high 1,000. 00-2,000 .00 [facility] Comment on above: Performed By: #### N A24U, [id number] #### [facility] [address] [place] [address] Dr. Jumana White UR TOT VOL 1375 ml/24 HR Normal [facility] Comment on above: Performed By: #### N A24U, [id number] #### [facility] [address] [place] [address] Dr. Jumana White Performed By: #### E LEC #### [facility] [address] [place] [address] Dr. Jumana White URINE CREAT 170.80 mg/dL Normal 20.00-300.00 [facility] Comment on above: Performed By: #### N A24U, [id number] #### [facility] [address] [place] [address] Dr. Jumana White PTH INTACTon 01-10-2022 PTH, Intact 24 pg/mL Normal 15-65 [facility] Comment on above: Performed By: #### O X24HR #### [facility] [address] [place] [address] Dr. Jumana White SODIUM 24 HR URINEon 022 NA, 24 HR UR 234 mmol/24 hr Critically high 40-220 [facility] Comment on above: Performed By: #### N A24U, [id number] #### [facility] [address] [place] [address] Dr. Jumana White Sodium (U) [Moles/Vol] 170 mmol/L Critically high 30-90 [facility] Comment on above: Performed By: #### N A24U, [id number] #### [facility] [address] [place] [address] Dr. Jumana White BUNon 01-09-2022 Urea nitrogen [Mass/Vol] 19.0 mg/dL Critically high 7.0-18.0 [facility] Comment on above: Performed By: #### N A24U, [id number] #### [facility] [address] [place] [address] Dr. Jumana White CALCIUMon 01-09-2022 Calcium [Mass/Vol] 8.6 mg/dL Normal 8.5-10.1 [facility] Comment on above: Performed By: #### N A24U, [id number] #### [facility] [address] [place] [address] Dr. Jumana White CHLORIDEon 01-09-2022 Chloride [Moles/Vol] 106 mmol/L Normal 98-107 [facility] Comment on above: Performed By: #### N A24U, [id number] #### [facility] [address] [place] [address] Dr. Jumana White CO2on 01-09-2022 CO2 [Moles/Vol] 27.4 mmol/L Normal 21.0-32.0 [facility] Comment on above: Performed By: #### N A24U, [id number] #### [facility] [address] [place] [address] Dr. Jumana White CREATININEon 01-09-2022 Creatinine [Mass/Vol] 0.89 mg/dL Normal 0.70-1.30 [facility] Comment on above: Performed By: #### N A24U, [id number] #### [facility] [address] [place] [address] Dr. Jumana White EGFR-AF IRAQI >60 Normal >=60 [facility] Comment on above: Performed By: #### N A24U, [id number] #### [facility] [address] [place] [address] Dr. Jumana White EGFR-NON AF IRAQI >60 Normal >=60 [facility] Comment on above: Performed By: #### N A24U, [id number] #### [facility] [address] [place] [address] Dr. Jumana White NAon 01-09-2022 Sodium [Moles/Vol] 138 mmol/L Normal 136-145 [facility] Comment on above: Performed By: #### N A24U, [id number] #### [facility] [address] [place] [address] Dr. Jumana White POTASSIUMon 01-09-2022 Potassium [Moles/Vol] 4.1 mmol/L Normal 3.5-5.1 [facility] Comment on above: Performed By: #### N A24U, [id number] #### [facility] [address] [place] [address] Dr. Jumana White URIC ACID SERUMon 01-09-2022 Urate [Mass/Vol] 5.2 mg/dL Normal 3.5-7.2 [facility] Comment on above: Performed By: #### N A24U, [id number] #### [facility] [address] [place] [address] Dr. Jumana White Vital Signs Date Time Vital Sign Value Performing Clinician Faci lity 11-11-2024 13:27-0400 Body height 172.72 cm [facility] 11-11-2024 13:27-0400 Body mass index (BMI) [Ratio] 28.8 kg/m2 [facility] 11-11-2024 13:27-0400 Body weight 86 kg [facility] 06-15-2024 13:44-0400 Blood Pressure Location [facility] 06-15-2024 13:44-0400 Diastolic blood pressure 82 mm[Hg] [facility] 06-15-2024 13:44-0400 Heart rate 68 /min [facility] 06-15-2024 13:44-0400 Systolic blood pressure 136 mm[Hg] [facility] 12-12-2023 12:50-0400 Body height 172.72 cm [facility] 12-12-2023 12:50-0400 Body mass index (BMI) [Ratio] 28.8 kg/m2 [facility] 12-12-2023 12:50-0400 Body temperature 98 [degF] [facility] 12-12-2023 12:50-0400 Body weight 86.18 kg [facility] 12-12-2023 12:50-0400 Heart rate 76 /min [facility] 12-12-2023 12:50-0400 Respiratory rate 16 /min [facility] 12-12-2023 12:50-0400 SaO2% (BldA) [Mass fraction] 96 % [facility] 11-22-2023 11:15-0400 Body height 172.72 cm [facility] 11-22-2023 11:15-0400 Body mass index (BMI) [Ratio] 28.1 kg/m2 [facility] 11-22-2023 11:15-0400 Body weight 83.91 kg [facility] 05-27-2023 15:11-0400 Blood Pressure Location [facility] 05-27-2023 15:11-0400 Diastolic blood pressure 84 mm[Hg] [facility] 05-27-2023 15:11-0400 Heart rate 71 /min [facility] 05-27-2023 15:11-0400 Respiratory rate 16 /min [facility] 05-27-2023 15:11-0400 Systolic blood pressure 125 mm[Hg] [facility] Encounters Encounter Date Encounter Type Care Provider Facility Start: 06-21-2025 ambulatory [facility] Facili ty:[facility] Start: 11-11-2024 End: 11-11-2024 ambulatory [facility] Work Phone: Start: 11-11-2024 End: 11-11-2024 Patient encounter procedure [facility] Work Phone: Start: 06-15-2024 End: 06-15-2024 ambulatory [facility] Facility:[facility] Start: 06-15-2024 End: 06-15-2024 Patient encounter procedure [facility] Start: 12-12-2023 End: 12-12-2023 ambulatory [facility] Work Phone: Start: 12-12-2023 End: 12-12-2023 Patient encounter procedure [facility] Work Phone: Start: 11-22-2023 End: 11-22-2023 ambulatory [facility] Work Phone: Start: 11-22-2023 End: 11-22-2023 Patient encounter procedure [facility] Work Phone: Start: 05-27-2023 End: 05-27-2023 Patient encounter procedure [facility] Start: 05-14-2023 End: 05-14-2023 Patient encounter procedure [facility] Start: 12-10-2022 End: 12-10-2022 Patient encounter procedure [facility] Start: 11-30-2022 End: 11-30-2022 ambulatory [facility] Facility:[facility] Start: 11-27-2022 End: 11-28-[address] TERRELL MARTIN Facility:[facility] Start: 11-12-2022 End: 11-12-2022 Patient encounter procedure [facility] Start: 10-30-2022 End: 10-30-2022 Patient encounter procedure [facility] Start: 09-27-2022 End: 09-28-2022 ambulatory VEGA VEGA Facility:[facility] Start: 09-27-2022 End: 09-27-2022 Subsequent hospital visit by physician Ip[facility]Op [facility] [address] [facility] Comment on above: Elevated PSA Start: 09-08-2022 End: 09-08-2022 ambulatory NATALIYA COVINGTON Facility:[facility] Start: 06-11-2022 End: 06-11-2022 Patient encounter procedure [facility] Start: 05-31-2022 Encounter for genera l adult medical examination without abnormal findings BRIANNA Richards SHERI [facility] Start: 05-29-2022 End: 05-30-2022 ambulatory [facility]GAHERBER [facility] Facility:[facility] Start: 05-29-2022 End: 05-30-2022 Encounter for general adult medical examination without abnormal findings BRIANNA WADE Facility:[facility] Start: 04-23-2022 End: 04-24-2022 ambulatory [facility] Facility:[facility] Start: 01-10-2022 End: 01-10-2022 ambulatory [facility]GA Facility:[facility] Start: 01-09-2022 End: 01-10-2022 ambulatory [facility]GA VEGA Facility:[facility] Procedures Date Procedure Procedure Detail Performing Clinician Start: 05-14-2023 Transrectal needle b iopsy of prostate [facility] Start: 11-27-2022 PSA screening [facility] O[facility] Comment on above: Performed By: #### P SAD #### [facility] [address] [place] [address] Dr. Jumana White Start: 10-30-2022 Transrectal biopsy o f prostate using ultrasound guidance [facility] Start: 05-29-2022 PSA screening [facility] ORELL[facility] Comment on above: Performed By: #### O [id number] #### [facility] [address] [place] [address] Dr. Jumana White Start: 10-27-2020 Extracorporeal shock wave lithotripsy of calculus of kidney [facility] Colonoscopy [facility] Plan of Treatment Date Care Activity Detail Author Start: 2011 Measurement of occul t blood in single stool specimen [facility] Start: 2011 Screening for malign ant neoplasm of colon CRC Screening [facility] Start: 2011 Monalisa (AVERY) Vacci ne (1 of 2) Shingles (RZV) Vaccine (1 of 2) [facility] Start: [address] [facility] Start: 1980 Tetanus vaccination Tet[facility]T d or Tdap) [facility] Start: 1979 Hepatitis C screening Hepatitis C An tibody [facility] Start: 1979 Tetanus + diphtheria + acellular pertussis vaccine (product) Tdap [facility] Start: 1976 HIV screening HIV Test [facility] Start: 1961 Screening for malign ant neoplasm of colon Colonoscopy [facility] End: 09-27-2022 MR Prostate WO and W contrast IV [facility] Work Phone: Comment on above: 1 Occurrences starti ng 09/27/2022 until 09/27/2022 Immunizations Immunization Date Immunization Notes Care Provider Fa [facility] 06-24-2022 influenza virus vaccine, unspecified formulation Vega VEGA [facility] 06-24-2022 Influenza, injectabl e, [place] Canine Kidney, preservative free, quadrivalent Mh 2 [facility] 06-24-2022 SARS-CoV-2 (COVID-19 ) [id number] Vega VEGA [facility] 08-13-2021 SARS-CoV-2 (COVID-19 ) mRNA [id number] vax Vega VEGA [facility] 08-02-2021 SARS-CoV-2 (COVID-19 ) Ad26 vaccine, recombinant Vega VEGA [facility] 07-03-2021 influenza virus vaccine, unspecified formulation Vega VEGA [facility] 06-15-2021 influenza virus vaccine, unspecified formulation Vega VEGA [facility] 06-15-2021 influenza, injectabl e, quadrivalent, preservative free Mh 2 [facility] 10-03-2020 SARS-CoV-2 (COVID-19 ) mRNA-1273 vaccine Vega VEGA [facility] 09-28-2020 SARS-CoV-2 (COVID-19 ) mRNA-1273 vaccine Vega VEGA [facility] 09-05-2020 SARS-CoV-2 (COVID-19 ) mRNA-1273 vaccine Vega VEGA [facility] 08-31-2020 SARS-CoV-2 (COVID-19 ) mRNA-1273 vaccine Vega VEGA [facility] 06-16-2020 influenza virus vaccine, unspecified formulation Vega VEGA [facility] 06-16-2020 influenza, injectabl e, quadrivalent, preservative free Mh 2 [facility] 06-10-2019 influenza virus vaccine, unspecified formulation Vega VEGA [facility] 06-10-2019 influenza, injectabl e, quadrivalent, preservative free Mh 2 [facility] 06-26-2018 influenza virus vaccine, unspecified formulation Vega VEGA [facility] 06-26-2018 influenza, injectabl e, quadrivalent, preservative free Mh 2 [facility] 06-19-2017 influenza virus vaccine, unspecified formulation Vega VEGA [facility] 06-19-2017 influenza, injectabl e, quadrivalent, preservative free Mh 2 [facility] 06-01-2016 influenza virus vaccine, unspecified formulation Vega VEGA [facility] 06-01-2016 influenza, injectabl e, quadrivalent, preservative free Mh 2 [facility] 07-14-2015 influenza virus vaccine, unspecified formulation Vega LISSETH [facility] 07-14-2015 influenza, injectabl e, quadrivalent, preservative free Mh 2 [facility] 06-16-2014 influenza virus vaccine, unspecified formulation Vega LISSETH [facility] 06-16-2014 influenza, seasonal, injectable, preservative free Mh 2 [facility] Payers Date Payer Category Payer Unknown [id number] 2018 Unknown [id number] 1960 Unknown [id number] 2.16. [id number] 1961 Unknown [id number] 2.16.84 [id number] 1961 Unknown [id number] 2.16.84 [id number] 1961 Unknown [id number] 2.16.84 [id number] 1961 Unknown [id number] 2.16.84 [id number] 1961 Unknown [id number] 2.16.84 [id number] 1961 Unknown [id number] 2.16.84 [id number] 1961 Unknown [id number] 2.16.84 [id number] 1961 Unknown [id number] 2.16.84 [id number] 1961 Unknown [id number] 2.16.8 [id number] 1961 Unknown [id number] 2.16.8 [id number] [facility] [id number] Unknown [employer] BC/BS [id number] Unknown [id number] Social History Date Type Detail Facility Start: 11-21-2020 End: 11-20-2022 Tobacco smoking status Never smoked tobacco (finding) [facility] Sex Assigned At Male [facility] Tobacco smoking status NHIS Tobacco smoking consumption unknown [facility] Start: 1960 Sex Assigned At Not on file [facility] Tobacco smoking status Never [facility] Start: 1960 Sex Assigned At Male [facility] Start: 11-11-2024 Sex Male (finding) [facility] Functional Status Date Assessment Result Facility 06-15-2024 Functional Status N/A [facility] 05-27-2023 Functional Status N/A [facility] 05-14-2023 Functional Status N/A [facility] 12-10-2022 Functional Status N/A [facility] 11-12-2022 Functional Status N/A [facility] 10-23-2022 Functional Status N/A [facility] Clinical Notes 06-11-2022 to 06-15-2024 Note Date & Type Note Facility 06-15-2024 Hospital Discharge instructions Patient Education 06/15/2024 15:10:20 Benign Prostatic Hyperplasia Benign Prostatic Hyperplasia Benign prostatic hyperplasia (BPH) is an enlarged prostate gland that is caused by the normal aging process. The prostate may get bigger as a man gets older. The condition is not caused by cancer. The prostate is a walnut-sized gland that is involved in the production of semen. It is located in front of the rectum and below the bladder. The bladder stores urine. The urethra carries stored urine out of the body. An enlarged prostate can press on the urethra. This can make it harder to pass urine. The buildup of urine in the bladder can cause infection. Back pressure and infection may progress to bladder damage and kidney (renal) failure. What are the causes? This condition is part of the normal aging process. However, not all men develop problems from this condition. If the prostate enlarges away from the urethra, urine flow will not be blocked. If it enlarges toward the urethra and compresses it, there will be problems passing urine. What increases the risk? This condition is more likely to develop in men older than 50 years. What are the signs or symptoms? Symptoms of this condition include: Getting up often during the night to urinate. Needing to urinate frequently during the day. Difficulty starting urine flow. Decrease in size and strength of your urine stream. Leaking (dribbling) after urinating. Inability to pass urine. This needs immediate treatment. Inability to completely empty your bladder. Pain when you pass urine. This is more common if there is also an infection. Urinary tract infection (UTI). How is this diagnosed? This condition is diagnosed based on your medical history, a physical exam, and your symptoms. Tests will also be done, such as: A post-void bladder scan. This measures any amount of urine that may remain in your bladder after you finish urinating. A digital rectal exam. In a rectal exam, your health care provider checks your prostate by putting a lubricated, gloved finger into your rectum to feel the back of your prostate gland. This exam detects the size of your gland and any abnormal lumps or growths. An exam of your urine (urinalysis). A prostate specific antigen (PSA) screening. This is a blood test used to screen for prostate cancer. An ultrasound. This test uses sound waves to electronically produce a picture of your prostate gland. Your health care provider may refer you to a specialist in kidney and prostate diseases (urologist). How is this treated? Once symptoms begin, your health care provider will monitor your condition (active surveillance or watchful waiting). Treatment for this condition will depend on the severity of your condition. Treatment may include: Observation and yearly exams. This may be the only treatment needed if your condition and symptoms are mild. Medicines to relieve your symptoms, including: ?Medicines to shrink the prostate. ?Medicines to relax the muscle of the prostate. Surgery in severe cases. Surgery may include: ?Prostatectomy. In this procedure, the prostate tissue is removed completely through an open incision or with a laparoscope or robotics. ?Transurethral resection of the prostate (TURP). In this procedure, a tool is inserted through the opening at the tip of the penis (urethra). It is used to cut away tissue of the inner core of the prostate. The pieces are removed through the same opening of the penis. This removes the blockage. ?Transurethral incision (TUIP). In this procedure, small cuts are made in the prostate. This lessens the prostate's pressure on the urethra. ?Transurethral microwave thermotherapy (TUMT). This procedure uses microwaves to create heat. The heat destroys and removes a small amount of prostate tissue. ?Transurethral needle ablation (TUNA). This procedure uses radio frequencies to destroy and remove a small amount of prostate tissue. ?Interstitial laser coagulation (ILC). This procedure uses a laser to destroy and remove a small amount of prostate tissue. ?Transurethral electrovaporization (TUVP). This procedure uses electrodes to destroy and remove a small amount of prostate tissue. ?Prostatic urethral lift. This procedure inserts an implant to push the lobes of the prostate away from the urethra. Follow these instructions at home: Take vedu-ffg-euumugp and prescription medicines only as told by your health care provider. Monitor your symptoms for any changes. Contact your health care provider with any changes. Avoid drinking large amounts of liquid before going to bed or out in public. Avoid or reduce how much caffeine or alcohol you drink. Give yourself time when you urinate. Keep all follow-up visits. This is important. Contact a health care provider if: You have unexplained back pain. Your symptoms do not get better with treatment. You develop side effects from the medicine you are taking. Your urine becomes very dark or has a bad smell. Your lower abdomen becomes distended and you have trouble passing urine. Get help right away if: You have a fever or chills. You suddenly cannot urinate. You feel light-headed or very dizzy, or you faint. There are large amounts of blood or clots in your urine. Your urinary problems become hard to manage. You develop moderate to severe low back or flank pain. The flank is the side of your body between the ribs and the hip. These symptoms may be an emergency. Get help right away. Call 911. Do not wait to see if the symptoms will go away. Do not drive yourself to the hospital. Summary Benign prostatic hyperplasia (BPH) is an enlarged prostate that is caused by the normal aging process. It is not caused by cancer. An enlarged prostate can press on the urethra. This can make it hard to pass urine. This condition is more likely to develop in men older than 50 years. Get help right away if you suddenly cannot urinate. This information is not intended to replace advice given to you by your health care provider. Make sure you discuss any questions you have with your health care provider. Document Revised: 03/07/2022 Document Reviewed: 03/07/2022 [employer] Patient Education 2023 [employer]. Follow Up Care 05/27/2023 16:14:59 With:LISSETH MARTINEZ, Vega Davidson, URL Address: [facility] [address], [place] [address] [phone] When: Unknown Comments:2 yr w/ PSA [facility] 06-15-2024 Note Patient Education Urology Benign Prostatic Hyperplasia Benign prostatic hyperplasia (BPH) is an enlarged prostate gland that is caused by the normal aging process. The prostate may get bigger as a man gets older. The condition is not caused by cancer. The prostate is a walnut-sized gland that is involved in the production of semen. It is located in front of the rectum and below the bladder. The bladder stores urine. The urethra carries stored urine out of the body. An enlarged prostate can press on the urethra. This can make it harder to pass urine. The buildup of urine in the bladder can cause infection. Back pressure and infection may progress to bladder damage and kidney (renal) failure. What are the causes? This condition is part of the normal aging process. However, not all men develop problems from this condition. If the prostate enlarges away from the urethra, urine flow will not be blocked. If it enlarges toward the urethra and compresses it, there will be problems passing urine. What increases the risk? This condition is more likely to develop in men older than 50 years. What are the signs or symptoms? Symptoms of this condition include: ? Getting up often during the night to urinate. ? Needing to urinate frequently during the day. ? Difficulty starting urine flow. ? Decrease in size and strength of your urine stream. ? Leaking (dribbling) after urinating. ? Inability to pass urine. This needs immediate treatment. ? Inability to completely empty your bladder. ? Pain when you pass urine. This is more common if there is also an infection. ? Urinary tract infection (UTI). How is this diagnosed? This condition is diagnosed based on your medical history, a physical exam, and your symptoms. Tests will also be done, such as: ? A post-void bladder scan. This measures any amount of urine that may remain in your bladder after you finish urinating. ? A digital rectal exam. In a rectal exam, your health care provider checks your prostate by putting a lubricated, gloved finger into your rectum to feel the back of your prostate gland. This exam detects the size of your gland and any abnormal lumps or growths. ? An exam of your urine (urinalysis). ? A prostate specific antigen (PSA) screening. This is a blood test used to screen for prostate cancer. ? An ultrasound. This test uses sound waves to electronically produce a picture of your prostate gland. Your health care provider may refer you to a specialist in kidney and prostate diseases (urologist). How is this treated? Once symptoms begin, your health care provider will monitor your condition (active surveillance or watchful waiting). Treatment for this condition will depend on the severity of your condition. Treatment may include: ? Observation and yearly exams. This may be the only treatment needed if your condition and symptoms are mild. ? Medicines to relieve your symptoms, including: ? Medicines to shrink the prostate. ? Medicines to relax the muscle of the prostate. ? Surgery in severe cases. Surgery may include: ? Prostatectomy. In this procedure, the prostate tissue is removed completely through an open incision or with a laparoscope or robotics. ? Transurethral resection of the prostate (TURP). In this procedure, a tool is inserted through the opening at the tip of the penis (urethra). It is used to cut away tissue of the inner core of the prostate. The pieces are removed through the same opening of the penis. This removes the blockage. ? Transurethral incision (TUIP). In this procedure, small cuts are made in the prostate. This lessens the prostate's pressure on the urethra. ? Transurethral microwave thermotherapy (TUMT). This procedure uses microwaves to create heat. The heat destroys and removes a small amount of prostate tissue. ? Transurethral needle ablation (TUNA). This procedure uses radio frequencies to destroy and remove a small amount of prostate tissue. ? Interstitial laser coagulation (ILC). This procedure uses a laser to destroy and remove a small amount of prostate tissue. ? Transurethral electrovaporization (TUVP). This procedure uses electrodes to destroy and remove a small amount of prostate tissue. ? Prostatic urethral lift. This procedure inserts an implant to push the lobes of the prostate away from the urethra. Follow these instructions at home: ? Take ujkc-jwg-ngcplyh and prescription medicines only as told by your health care provider. ? Monitor your symptoms for any changes. Contact your health care provider with any changes. ? Avoid drinking large amounts of liquid before going to bed or out in public. ? Avoid or reduce how much caffeine or alcohol you drink. ? Give yourself time when you urinate. ? Keep all follow-up visits. This is important. Contact a health care provider if: ? You have unexplained back pain. ? Your symptoms do not get better with treatment. ? You develop side effec (more content not included)... [facility] 05-27-2023 Hospital Discharge instructions Patient Education 05/27/2023 08:40:05 Prostate Cancer Screening Prostate Cancer Screening Prostate cancer screening is testing that is done to check for the presence of prostate cancer in men. The prostate gland is a walnut-sized gland that is located below the bladder and in front of the rectum in males. The function of the prostate is to add fluid to semen during ejaculation. Prostate cancer is one of the most common types of cancer in men. Who should have prostate cancer screening? Screening recommendations vary based on age and other risk factors, as well as between the professional organizations who make the recommendations. In general, screening is recommended if: You are age 50 to 70 and have an average risk for prostate cancer. You should talk with your health care provider about your need for screening and how often screening should be done. Because most prostate cancers are slow growing and will not cause , screening in this age group is generally reserved for men who have a 10- to 15-year life expectancy. You are younger than age 50, and you have these risk factors: ?Having a father, brother, or uncle who has been diagnosed with prostate cancer. The risk is higher if your family member's cancer occurred at an early age or if you have multiple family members with prostate cancer at an early age. ?Being a male who is Black or is of Bull or sub-Saharan descent. In general, screening is not recommended if: You are younger than age 40. You are between the ages of 40 and 49 and you have no risk factors. You are 70 years of age or older. At this age, the risks that screening can cause are greater than the benefits that it may provide. If you are at high risk for prostate cancer, your health care provider may recommend that you have screenings more often or that you start screening at a younger age. How is screening for prostate cancer done? The recommended prostate cancer screening test is a blood test called the prostate-specific antigen (PSA) test. PSA is a protein that is made in the prostate. As you age, your prostate naturally produces more PSA. Abnormally high PSA levels may be caused by: Prostate cancer. An enlarged prostate that is not caused by cancer (benign prostatic hyperplasia, or BPH). This condition is very common in older men. A prostate gland infection (prostatitis) or urinary tract infection. Certain medicines such as male hormones (like testosterone) or other medicines that raise testosterone levels. A rectal exam may be done as part of prostate cancer screening to help provide information about the size of your prostate gland. When a rectal exam is performed, it should be done after the PSA level is drawn to avoid any effect on the results. Depending on the PSA results, you may need more tests, such as: A physical exam to check the size of your prostate gland, if not done as part of screening. Blood and imaging tests. A procedure to remove tissue samples from your prostate gland for testing (biopsy). This is the only way to know for certain if you have prostate cancer. What are the benefits of prostate cancer screening? Screening can help to identify cancer at an early stage, before symptoms start and when the cancer can be treated more easily. There is a small chance that screening may lower your risk of dying from prostate cancer. The chance is small because prostate cancer is a slow-growing cancer, and most men with prostate cancer from a different cause. What are the risks of prostate cancer screening? The main risk of prostate cancer screening is diagnosing and treating prostate cancer that would never have caused any symptoms or problems. This is called overdiagnosisand overtreatment. PSA screening cannot tell you if your PSA is high due to cancer or a different cause. A prostate biopsy is the only procedure to diagnose prostate cancer. Even the results of a biopsy may not tell you if your cancer needs to be treated. Slow-growing prostate cancer may not need any treatment other than monitoring, so diagnosing and treating it may cause unnecessary stress or other side effects. Questions to ask your health care provider When should I start prostate cancer screening? What is my risk for prostate cancer? How often do I need screening? What type of screening tests do I need? How do I get my test results? What do my results mean? Do I need treatment? Where to find more information [employer] [employer]: www.cancer.org [employer]: www.auanet.org Contact a health care provider if: You have difficulty urinating. You have pain when you urinate or ejaculate. You have blood in your urine or semen. You have pain in your back or in the area of your prostate. Summary Prostate cancer is a common type of cancer in men. The prostate gland is located below the bladder and in front of the rectum. This gland adds fluid to semen during ejaculation. Prostate cancer screening may identify cancer at an early stage, when the cancer can be treated more easily and is less likely to have spread to other areas of the body. The prostate-specific antigen (PSA) test is the recommended screening test for prostate cancer, but it has associated risks. Discuss the risks and benefits of prostate cancer screening with your health care provider. If you are age 70 or older, the risks that screening can cause are greater than the benefits that it may provide. This information is not intended to replace advice given to you by your health care provider. Make sure you discuss any questions you have with your health care provider. Document Revised: 02/12/2022 Document Reviewed: 02/12/2022 [employer] Patient Education 2022 [employer]. Follow Up Care 11/12/2022 14:44:39 With:LISSETH MARTINEZ, Vega Davidson, URL Address: [facility] [address], [place] [address]- [phone] When: Unknown [facility] 05-14-2023 Hospital Discharge instructions Patient Education 05/14/2023 15:39:27 [facility] - Transrectal Ultrasound of the Prostate with US guided biopsy Discharge Instructions (CUSTOM) Transrectal Ultrasound of the Prostate with US guided biopsy Even though there are no visible incisions, multiple prostate biopsies have been taken through the rectum and you need to follow some instructions to minimize the risks of bleeding. You may see some blood in your urine and stool for up to 1 week (and blood in the semen for several months) Diet -You may resume your normal diet, but you may want to avoid alcohol, carbonated drinks, caffeine, and spicy foods, which may increase the irritation from the surgery. -Drink plenty of water to keep the urine clear. Activity -You should limit any physical activity for about 48 hours -No heavy lifting or straining (10 pound limit) -No driving a car and limit long car rides for 2 days -No strenuous exercise -No sexual intercourse until this is discussed with your doctor Bowels -Try to keep your bowel movements soft to minimize straining to have a bowel movement. -You may use a stool softener or over the counter laxative if needed -Difficult bowel movement may lead to straining and bleeding from the prostate Medications -You may resume your home medications unless instructed otherwise -Hold aspirin, ibuprofen, Coumadin (warfarin) and other blood thinners for about two days or until there is no active bleeding unless otherwise instructed -Finish the antibiotic which you have already started Things to watch for which would require an Emergency Room visit or call 911: (this is not a complete list) -Persistent or heavy bleeding or blood clots from the rectum or in the urine -Inability to urinate -Fever over 101.5 degrees Fahrenheit, with or without chills -Severe drug reactions with itching, hives or rash -Tenderness or swelling of the calves, chest pain, or shortness of breath Please call the office to arrange for your post-operative appointment in 1-2 weeks [phone] or [phone] Follow Up Care 04/10/2023 14:50:05 With:Vega VEGA Address: [facility] [address] [place] [address]- Business (1) When: Unknown Comments:Keep scheduled appointment [facility] 12-10-2022 Hospital Discharge instructions Patient Education 12/10/2022 08:17:42 Prostate Cancer Screening Prostate Cancer Screening The prostate is a walnut-sized gland that is located below the bladder and in front of the rectum in males. The function of the prostate (prostate gland) is to add fluid to semen during ejaculation. Prostate cancer is the second most common type of cancer in men. A screening test for cancer is a test that is done before cancer symptoms start. Screening can help to identify cancer at an early stage, when the cancer can be treated more easily. The recommended prostate cancer screening test is a blood test called the prostate-specific antigen (PSA) test. PSA is a protein that is made in the prostate. As you age, your prostate naturally produces more PSA. Abnormally high PSA levels may be caused by: Prostate cancer. An enlarged prostate that is not caused by cancer (benign prostatic hyperplasia, BPH). This condition is very common in older men. A prostate gland infection (prostatitis). Medicines to assist with hair growth, such as finasteride. Depending on the PSA results, you may need more tests, such as: A physical exam to check the size of your prostate gland. Blood and imaging tests. A procedure to remove tissue samples from your prostate gland for testing (biopsy). Who should have screening? Screening recommendations vary based on age. If you are younger than age 40, screening is not recommended. If you are age 40 54 and you have no risk factors, screening is not recommended. If you are younger than age 55, ask your health care provider if you need screening if you have one of these risk factors: ?Being of -[place]ian descent. ?Having a family history of prostate cancer. If you are age 55 69, talk with your health care provider about your need for screening and how often screening should be done. If you are older than age 70, screening is not recommended. This is because the risks that screening can cause are greater than the benefits that it may provide (risks outweigh the benefits). If you are at high risk for prostate cancer, your health care provider may recommend that you have screenings more often or start screening at a younger age. You may be at high risk if you: Are older than age 55. Are -Algerian. Have a father, brother, or uncle who has been diagnosed with prostate cancer. The risk may be higher if your family member's cancer occurred at an early age. What are the benefits of screening? There is a small chance that screening may lower your risk of dying from prostate cancer. The chance is small because prostate cancer is typically a slow-growing cancer, and most men with prostate cancer from a different cause. What are the risks of screening? The main risk of prostate cancer screening is diagnosing and treating prostate cancer that would never have caused any symptoms or problems (overdiagnosis and overtreatment). PSA screening cannot tell you if your PSA is high due to cancer or a different cause. A prostate biopsy is the only procedure to diagnose prostate cancer. Even the results of a biopsy may not tell you if your cancer needs to be treated. Slow-growing prostate cancer may not need any treatment other than monitoring, so diagnosing and treating it may cause unnecessary stress or other side effects. A prostate biopsy may also cause: Infection or fever. A false negative. This is a result that shows that you do not have prostate cancer when you actually do have prostate cancer. Questions to ask your health care provider When should I start prostate cancer screening? What is my risk for prostate cancer? How often do I need screening? What type of screening tests do I need? How do I get my test results? What do my results mean? Do I need treatment? Contact a health care provider if: You have difficulty urinating. You have pain when you urinate or ejaculate. You have blood in your urine or semen. You have pain in your back or in the area of your prostate. You have trouble getting or maintaining an erection (erectile dysfunction, ED). Summary Prostate cancer is a common type of cancer in men. The prostate (prostate gland) is located below the bladder and in front of the rectum. This gland adds fluid to semen during ejaculation. Prostate cancer screening may identify cancer at an early stage, when the cancer can be treated more easily. The prostate-specific antigen (PSA) test is the recommended screening test for prostate cancer. Discuss the risks and benefits of prostate cancer screening with your health care provider. If you are age 70 or older, screening is likely to lead to more risks than benefits (risks outweigh the benefits). This information is not intended to replace advice given to you by your health care provider. Make sure you discuss any questions you have with your health care provider. Document Released: 05/30/2018 Document Revised: 08/01/2018 Document Reviewed: 05/30/2018 [employer] Patient Education 2020 [employer]. Follow Up Care 06/11/2022 10:41:19 With:LISSETH MARTINEZ, Vega Davidson, URL Address: [facility] [address] [place] [address]- When: Unknown [facility] 11-12-2022 Hospital Discharge instructions Patient Education 11/12/2022 08:34:20 Dietary Guidelines to Help Prevent Kidney Stones Dietary Guidelines to Help Prevent Kidney Stones Kidney stones are deposits of minerals and salts that form inside your kidneys. Your risk of developing kidney stones may be greater depending on your diet, your lifestyle, the medicines you take, and whether you have certain medical conditions. Most people can reduce their chances of developing kidney stones by following the instructions below. Depending on your overall health and the type of kidney stones you tend to develop, your dietitian may give you more specific instructions. What are tips for following this plan? Reading food labels Choose foods with no salt added or low-salt labels. Limit your sodium intake to less than 1500 mg per day. Choose foods with calcium for each meal and snack. Try to eat about 300 mg of calcium at each meal. Foods that contain 200 500 mg of calcium per serving include: ?8 oz (237 ml) of milk, fortified nondairy milk, and fortified fruit juice. ?8 oz (237 ml) of kefir, yogurt, and soy yogurt. ?4 oz (118 ml) of tofu. ?1 oz of cheese. ?1 cup (300 g) of dried figs. ?1 cup (91 g) of cooked broccoli. ?1 3 oz can of sardines or mackerel. Most people need 1000 to 1500 mg of calcium each day. Talk to your dietitian about how much calcium is recommended for you. Shopping Buy plenty of fresh fruits and vegetables. Most people do not need to avoid fruits and vegetables, even if they contain nutrients that may contribute to kidney stones. When shopping for convenience foods, choose: ?Whole pieces of fruit. ?Premade salads with dressing on the side. ?Low-fat fruit and yogurt smoothies. Avoid buying frozen meals or prepared deli foods. Look for foods with live cultures, such as yogurt and kefir. Cooking Do not add salt to food when cooking. Place a salt shaker on the table and allow each person to add his or her own salt to taste. Use vegetable protein, such as beans, textured vegetable protein (TVP), or tofu instead of meat in pasta, casseroles, and soups. Meal planning Eat less salt, if told by your dietitian. To do this: ?Avoid eating processed or premade food. ?Avoid eating fast food. Eat less animal protein, including cheese, meat, poultry, or fish, if told by your dietitian. To do this: ?Limit the number of times you have meat, poultry, fish, or cheese each week. Eat a diet free of meat at least 2 days a week. ?Eat only one serving each day of meat, poultry, fish, or seafood. ?When you prepare animal protein, cut pieces into small portion sizes. For most meat and fish, one serving is about the size of one deck of cards. Eat at least 5 servings of fresh fruits and vegetables each day. To do this: ?Keep fruits and vegetables on hand for snacks. ?Eat 1 piece of fruit or a handful of berries with breakfast. ?Have a salad and fruit at lunch. ?Have two kinds of vegetables at dinner. Limit foods that are high in a substance called oxalate. These include: ?Spinach. ?Rhubarb. ?Beets. ?Potato chips and kuwaiti fries. ?Nuts. If you regularly take a diuretic medicine, make sure to eat at least 1 2 fruits or vegetables high in potassium each day. These include: ?Avocado. ?Banana. ?[place], prune, carrot, or tomato juice. ?Baked potato. ?Cabbage. ?Beans and split peas. General instructions Drink enough fluid to keep your urine clear or pale yellow. This is the most important thing you can do. Talk to your health care provider and dietitian about taking daily supplements. Depending on your health and the cause of your kidney stones, you may be advised: ?Not to take supplements with vitamin C. ?To take a calcium supplement. ?To take a daily probiotic supplement. ?To take other supplements such as magnesium, fish oil, or vitamin B6. Take all medicines and supplements as told by your health care provider. Limit alcohol intake to no more than 1 drink a day for non women and 2 drinks a day for men. One drink equals 12 oz of beer, 5 oz of wine, or 1 oz of hard liquor. Lose weight if told by your health care provider. Work with your dietitian to find strategies and an eating plan that works best for you. What foods are not recommended? Limit your intake of the following foods, or as told by your dietitian. Talk to your dietitian about specific foods you should avoid based on the type of kidney stones and your overall health. Grains Breads. Bagels. Rolls. Baked goods. Salted crackers. Cereal. Pasta. Vegetables Spinach. Rhubarb. Beets. Canned vegetables. Pickles. Olives. Meats and other protein foods Nuts. Nut butters. Large portions of meat, poultry, or fish. Salted or cured meats. Deli meats. Hot dogs. Sausages. Dairy Cheese. Beverages Regular soft drinks. Regular vegetable juice. Seasonings and other foods Seasoning blends with salt. Salad dressings. Canned soups. Soy sauce. Ketchup. Barbecue sauce. Canned pasta sauce. Casseroles. Pizza. Lasagna. Frozen meals. Potato chips. Chinese fries. Summary You can reduce your risk of kidney stones by making changes to your diet. The most important thing you can do is drink enough fluid. You should drink enough fluid to keep your urine clear or pale yellow. Ask your health care provider or dietitian how much protein from animal sources you should eat each day, and also how much salt and calcium you should have each day. This information is not intended to replace advice given to you by your health care provider. Make sure you discuss any questions you have with your health care provider. Document Released: 12/14/2011 Document Revised: 12/09/2019 Document Reviewed: 07/30/2017 [employer] Patient Education 2019 [employer]. Follow Up Care 10/16/2022 13:30:49 With:LISSETH MARTINEZ, Vega Davidson, URL Address: [facility] [address], [place] [address]- When: Unknown [facility] 10-30-2022 Hospital Discharge instructions Patient Education 10/30/2022 13:08:15 [facility] - Transrectal Ultrasound of the Prostate with US guided biopsy Discharge Instructions (CUSTOM) Transrectal Ultrasound of the Prostate with US guided biopsy Even though there are no visible incisions, multiple prostate biopsies have been taken through the rectum and you need to follow some instructions to minimize the risks of bleeding. You may see some blood in your urine and stool for up to 1 week (and blood in the semen for several months) Diet -You may resume your normal diet, but you may want to avoid alcohol, carbonated drinks, caffeine, and spicy foods, which may increase the irritation from the surgery. -Drink plenty of water to keep the urine clear. Activity -You should limit any physical activity for about 48 hours -No heavy lifting or straining (10 pound limit) -No driving a car and limit long car rides for 2 days -No strenuous exercise -No sexual intercourse until this is discussed with your doctor Bowels -Try to keep your bowel movements soft to minimize straining to have a bowel movement. -You may use a stool softener or over the counter laxative if needed -Difficult bowel movement may lead to straining and bleeding from the prostate Medications -You may resume your home medications unless instructed otherwise -Hold aspirin, ibuprofen, Coumadin (warfarin) and other blood thinners for about two days or until there is no active bleeding unless otherwise instructed -Finish the antibiotic which you have already started Things to watch for which would require an Emergency Room visit or call 911: (this is not a complete list) -Persistent or heavy bleeding or blood clots from the rectum or in the urine -Inability to urinate -Fever over 101.5 degrees Fahrenheit, with or without chills -Severe drug reactions with itching, hives or rash -Tenderness or swelling of the calves, chest pain, or shortness of breath Please call the office to arrange for your post-operative appointment in 1-2 weeks [phone] or [phone] Follow Up Care 10/16/2022 13:52:04 With:Vega VEGA Address: [facility] [address] [place] [address]- Business (1) When:11/13/2022 13:08:04 [facility] 06-11-2022 Hospital Discharge instructions Patient Education 06/11/2022 10:12:12 Kidney Stones, [id number] Kidney Stones Kidney stones are rock-like masses that form inside of the kidneys. Kidneys are organs that make pee (urine). A kidney stone may move into other parts of the urinary tract, including: The tubes that connect the kidneys to the bladder (ureters). The bladder. The tube that carries urine out of the body (urethra). Kidney stones can cause very bad pain and can block the flow of pee. The stone usually leaves your body (passes) through your pee. You may need to have a doctor take out the stone. What are the causes? Kidney stones may be caused by: A condition in which certain glands make too much parathyroid hormone (primary hyperparathyroidism). A buildup of a type of crystals in the bladder made of a chemical called uric acid. The body makes uric acid when you eat certain foods. Narrowing (stricture) of one or both of the ureters. A kidney blockage that you were born with. Past surgery on the kidney or the ureters, such as gastric bypass surgery. What increases the risk? You are more likely to develop this condition if: You have had a kidney stone in the past. You have a family history of kidney stones. You do not drink enough water. You eat a diet that is high in protein, salt (sodium), or sugar. You are overweight or very overweight (obese). What are the signs or symptoms? Symptoms of a kidney stone may include: Pain in the side of the belly, right below the ribs (flank pain). Pain usually spreads (radiates) to the groin. Needing to pee often or right away (urgently). Pain when going pee (urinating). Blood in your pee (hematuria). Feeling like you may vomit (nauseous). Vomiting. Fever and chills. How is this treated? Treatment depends on the size, location, and makeup of the kidney stones. The stones will often pass out of the body through peeing. You may need to: Drink more fluid to help pass the stone. In some cases, you may be given fluids through an IV tube put into one of your veins at the hospital. Take medicine for pain. Make changes in your diet to help keep kidney stones from coming back. Sometimes, medical procedures are needed to remove a kidney stone. This may involve: A procedure to break up kidney stones using a beam of light (laser) or shock waves. Surgery to remove the kidney stones. Follow these instructions at home: Medicines Take [id number] and prescription medicines only as told by your doctor. Ask your doctor if the medicine prescribed to you requires you to avoid driving or using heavy machinery. Eating and drinking Drink enough fluid to keep your pee pale yellow. You may be told to drink at least 8 10 glasses of water each day. This will help you pass the stone. If told by your doctor, change your diet. This may include: ?Limiting how much salt you eat. ?Eating more fruits and vegetables. ?Limiting how much meat, poultry, fish, and eggs you eat. Follow instructions from your doctor about eating or drinking restrictions. General instructions Collect pee samples as told by your doctor. You may need to collect a pee sample: ?24 hours after a stone comes out. ?8 12 weeks after a stone comes out, and every 6 12 months after that. Strain your pee every time you pee (urinate), for as long as told. Use the strainer that your doctor recommends. Do not throw out the stone. Keep it so that it can be tested by your doctor. Keep all follow-up visits as told by your doctor. This is important. You may need follow-up tests. How is this prevented? To prevent another kidney stone: Drink enough fluid to keep your pee pale yellow. This is the best way to prevent kidney stones. Eat healthy foods. Avoid certain foods as told by your doctor. You may be told to eat less protein. Stay at a healthy weight. Where to find more information National Kidney Foundation (NKF): www.kidney.org [facility] Foundation (UCF): www.urologyhealth.org Contact a doctor if: You have pain that gets worse or does not get better with medicine. Get help right away if: You have a fever or chills. You get very bad pain. You get new pain in your belly (abdomen). You pass out (faint). You cannot pee. Summary Kidney stones are rock-like masses that form inside of the kidneys. Kidney stones can cause very bad pain and can block the flow of pee. The stones will often pass out of the body through peeing. Drink enough fluid to keep your pee pale yellow. This information is not intended to replace advice given to you by your health care provider. Make sure you discuss any questions you have with your health care provider. Document Released: 02/04/2009 Document Revised: 01/05/2020 Document Reviewed: 01/05/2020 [employer] Patient Education 2019 [employer]. Follow Up Care 12/04/2021 10:37:08 With:Vega VEGA MD, URL Address: [facility] [address], [place] [address]- [phone] When:12/10/2022 Comments:PSA, KUB [facility] Evaluation + Plan note Future Appointments Appointment Date:12/10/2022 09:45:00 AM Scheduled Provider:Vega VEGA MD [facility] Appointment Type:URO Office Visit Diagnostic Tests PendingPSA Total 06/11/22 [facility] Evaluation + Plan note Future Appointments Appointment Date:11/12/2022 02:15:00 PM Scheduled Provider:Vega VEGA MD Location:[facility] [place] Appointment Type:URO Office Visit Appointment Date:12/10/2022 09:45:00 AM Scheduled Provider:Vega VEGA MD [facility] Appointment Type:URO Office Visit Diagnostic Tests PendingProstate Histology ([facility]) 10/30/22 [facility] Evaluation + Plan note Future Appointments Appointment Date:12/10/2022 09:45:00 AM Scheduled Provider:Vega VEGA MD Location[facility] Appointment Type:URO Office Visit Appointment Date:05/13/2023 02:15:00 PM Scheduled Provider:Vega VEGA MD Location:[facility] Appointment Type:URO Office Visit [facility] Evaluation + Plan note Future Appointments Appointment Date:05/13/2023 02:15:00 PM Scheduled Provider:Vega VEGA MD Location:[facility] Appointment Type:URO Office Visit [facility] Evaluation + Plan note Future Appointments Appointment Date:05/27/2023 02:15:00 PM Scheduled Provider:Vega VEGA MD Location:[facility] Appointment Type:URO Office Visit Diagnostic Tests PendingProstate Histology ([facility]) 05/14/23 [facility] Evaluation + Plan note Future Appointments Appointment Date:06/01/2024 03:00:00 PM Scheduled Provider:Vega VEGA MD Location:[facility] Appointment Type:URO Office Visit Diagnostic Tests PendingPSA Free & Total 05/27/23 [facility] Evaluation + Plan note Future Appointments Appointment Date:06/21/2025 01:15:00 PM Scheduled Provider:Vega VEGA MD Location:[facility] Appointment Type:URO Office Visit Diagnostic Tests PendingPSA Total 06/15/24 [facility] Evaluation note Diagnosis Elevated PSA Elevated prostate specific antigen (PSA) [facility] Diagnosis Onset Date Resolution Status GERD (gastroesophageal reflux disease) acute [facility] Work Phone: Evaluation note* Diagnosis Onset Date Resolution Status GERD (gastroesophageal reflux disease) acute Tinea cruris noneactive [facility] Work Phone: Evaluation note* Diagnosis Onset Date Resolution Status Admit Date GERD (gastroesophageal reflu x disease) acute November 11, 2024 1:22pm [facility] Work Phone: Hospital course Narrative No data available for this section [facility] progress note No data available for this section [facility] Reason for Referral Specialty Diagnoses / Procedures Referred By Betzy t Referred To Contact Radiology Diagnoses Elevated PSA Procedures MR PROSTATE W/&W/O Vega Vega [address] [place] [address] [facility] [address] [place] [address] Referral ID Status Reason Start Date Expiration Date V isits Requested Visits Authorized [id number] Denied Transfer of Care-[facility] 07/31/2022 07/31/2023 1 1 Summary Purpose Family History Relationship Condition Age at Onset Recorded Date/T marissa father Unknown Not Specified Unknown Relationship Condition Age at Onset Recorded Date/T marissa father Unknown mother Unknown Advance Directives Advance Directive Response Recorded Date/ Time Advance Directives No November 21 11:11am Chief Complaint and Reason for Visit Chief Complaint dyspepsia Reason for Visit GERD (gastroesophage al reflux disease) Chief Complaint dyspepsia Skin irritation, erythematous, tender Reason for Visit GERD (gastroesophage al reflux disease) Tinea cruris Chief Complaint Admit Date 1 yr follow up/ gerd November 11, 2024 1: 22pm Reason for Visit Admit Date GERD (gastroesophageal reflux disease) M arch 2024 1:22pm Additional Source Comments Patient Care team informatio n (unrecognized section and content) Team Status: Active Member Role Status Dates Terrell Martin MD Primary Care Provider Active Team Status: Inactive Member Role Status Dates Terrell Martin MD Primary Care Provider Active Start: November 22, 2023 End: November 22, 2023 Elkin Cervantes APRN Attending Provider Active Start: November 22, 2023 End: November 22, 2023 Team Status: Inactive Member Role Status Dates Terrell Martin MD Primary Care Provider Active Start: December 12, 2023 End: December 12, 2023 AMADEO Stahl Attending Provider Active S tart: December 12, 2023 End: December 12, 2023 Team Status: Inactive Member Role Status Dates Terrell Martin MD Primary Care Provider Active Start: November 11, 2024 End: November 11, 2024 Elkin Cervantes APRN Attending Provider Active Start: November 11, 2024 End: November 11, 2024 Reason for Visit (unrecogniz ed section and content) Specialty Diagnoses / Procedures Referred By Contac t Referred To Contact Radiology Diagnoses Elevated PSA Procedures MR PROSTATE W/&W/O [place] [address] [place] [address] [facility] [address] [place] [address] Referral ID Status Reason Start Date Expiration Date V isits Requested Visits Authorized [id number] Denied Transfer of Care-[facility] 07/31/2022 07/31/2023 1 1 (unrecognized sect ion and content) No Status Records FoundNo Status Records FoundNo Status Records Found INFORMATION SOURCE (unrecogn ized section and content) DATE CREATED AUTHOR 10/09/2022 [employer] DATE CREATED AUTHOR AUTHOR'S ORGANIZ ATION 12/08/2022 [facility] DATE CREATED AUTHOR AUTHOR'S ORGANIZ ATION 06/17/2024 [facility] Goals (unrecognized section and content) Goals may be documented in a n alternate section FOR RECORDS PERTAINING TO PATIENTS WHO ARE OR HAVE BEEN ENROLLED IN A CHEMICAL DEPENDENCY/SUBSTANCEABUSE PROGRAM, SOME INFORMATION MAY BE OMITTED. This clinical summary was aggregated from multiple sources. Caution should be exercised in using it in the provision of clinical care. This summary normalizes information from multiple sources, and as a consequence, information in this document may materially change the coding, format and clinical context of patient data. In addition, data may be omitted in some cases. CLINICAL DECISIONS SHOULD BE BASED ON THE PRIMARY CLINICAL RECORDS. [facility] [employer] [facility]. provides no warranty or guarantee of the accuracy or completeness of information in this document.
[2025-06-15 13:34] LABS: Prostate Specific Antigen Dx 3.28 ng/mL (<=4.00)
== END 2025-06-15 10:41 | disposition home or self-care (01) ==
PROVIDERS: PCP Family Medicine; Visit Provider Urology
DX: R97.20 Elevated prostate specific antigen [PSA] (principal)
CPT/HCPCS: 36415; 84153